=== PATIENT | male | born 1985 | race Caucasian/White ===

== ENCOUNTER 2024-07-01 16:26 | Inpatient (IN) | payer OTHER, SELFPAY ==
[2024-07-01] VITALS (15 sets, daily range): BP systolic 93–155; BP diastolic 71–88; PULSE 71–79; BMI 27.0; BMI 26.4
--- NOTE | 2024-07-01 11:06 | ED.PDOC.TRB ---
ED Provider Triage
-
Patient seen by provider in Triage?: Seen in Triage
Initial rapid assessment performed in triage to facilitate ED workup
This is a 39-year-old male with congenital heart defect and AV block status post pacemaker placement the age of 1, presenting to the emergency department due to heart palpitations and shortness of breath beginning this morning. Denies chest pain at
this time. Current speech and hearing director is Dr. Maldonado. Last pacer hardware or battery exchange was June of last year performed at this hospital. Pacemaker is a Medtronic
GEN: Appears anxious/distressed
HEENT: Oral mucosa moist, no scleral icterus
Cardiac: Regular rate
Lung: Mildly tachypneic
MSK: No gross deformity or injuries
Skin: Good color, no pallor or jaundice, no rashes
Neuro: AO x3, unsteady gait
Psych: Calm, cooperative
Initial EKG shows a paced rhythm with controlled rate
Assessment/plan: Potential cardiac arrhythmia, needs urgent pacemaker interrogation, will order labs and chest x-ray for completeness
[2024-07-01 11:50] LABS: % Basophils 0.2 % (0-2); % Eosinophils 1.9 % (0-6); % Immature Granulocytes 0.4 % (0-0.5); % Lymphocytes 29.7 % (20.5-51.1); % Monocytes 8.8 % (1.7-9.3); Absolute Eosinophils 0.2 10^3/uL (0-0.7); Absolute Lymphocytes 2.5 10^3/uL (1.2-3.4); Absolute Monocytes 0.7 10^3/uL (0.1-0.6); Absolute Neutrophils 4.9 10^3/uL (1.4-6.5); Hematocrit 41.3 % (39.0-52.0); Hemoglobin 14.6 g/dL (13.0-18.0); Mean Corp Hgb Conc. 35.4 g/dL (33.0-37.0); Mean Corpuscular Hgb 31.5 pg (27.0-31.0); Mean Corpuscular Volume 89.2 fL (80.0-94.0); Mean Platelet Volume 10.2 fL (7.4-10.4); Nucleated Red Blood Cells % 0 % (-); Platelet Count 240 10^3/uL (130-400); Red Blood Cell Count 4.63 10^6/uL (4.70-6.10); Red Cell Dist. Width 12.3 % (11.5-14.5); White Blood Cell Count 8.3 10^3/uL (4.8-10.8)
[2024-07-01 12:03] LABS: ALT (SGPT) 32 U/L (0-50); AST (SGOT) 27 U/L (17-59); Albumin 4.7 g/dl (3.5-5.0); Alkaline Phosphatase 76 U/L (38-126); Blood Urea Nitrogen 11 mg/dl (9-20); Calcium 9.9 mg/dl (8.4-10.2); Carbon Dioxide 19 mmol/L (22-30); Chloride 107 mmol/L (98-107); Estimated Creatinine Clearance 88 ml/min; Glucose 113 mg/dl (70-99); Potassium 4.2 mmol/L (3.5-5.1); Sodium 140 mmol/L (135-145); Total Bilirubin 0.9 mg/dl (0.2-1.3); eGFR > 60.00
[2024-07-01 12:15] LABS: Troponin I < 0.012 ng/ml
--- NOTE | 2024-07-01 13:04 | ED.GENMED ---
History of Present Illness
General
Chief Complaint: Cardiac Symptoms
Source: patient
Exam Limitations: none
Time Seen by Provider: 07/01/24 11:44
Nursing documentation reviewed up to this point in time: agreed with
History of Present Illness
History of Present Illness:
pt is a 39 y/o M with h/o complete heart block, s/p Pacer, former substance abuse, chf,
here with papitaitons/racing heart rate and chest tightness/sob since 10 am this morning after having intercourse
he says he felt his heart rate increase but just presumed this was normal
but then it didn't improve and he didn't feel right so he decided to come in
on he way here, he threw up outside of the car
he felt a little improved after vomiting, his heart rate did come down soem but he still doesn't feel right
he has mild chest tightness and sob
no abdominal apin, fever, cough
Past History
Past History
ED Past Medical History: Arrthythmia, Other (VSD) and Other (Chronic back issues)
ED Past Surgical History: Cardiac
Social History
Tobacco: Smoker
Living: with family
Employment: Disabled
Review of Systems
Review of Systems
Allergies reviewed?: Yes
All Other Systems: Not applicable
Phy Exam
Physical Exam
Physical Exam:
GENERAL: Alert , in no apparent distress, pale, mildly uncomfortable but not in distress
EYE: pupils equal and reactive
NECK: Supple
ENT: o/p clr, mmm.
CARDIAC: Regular rate and rhythm ., no edema
LUNGS: Clear breath sounds bilaterally, no acute respiratory distress, no wheezes/rales/rhonchi
ABDOMEN: Soft, without focal tenderness, no r/g, no cvat, normal bowel sounds
NEUROLOGICAL: Alert and oriented, no focal neuro deficits
SKIN: Warm and dry, skin intact.
MUSCULOSKELETAL: No edema, well perfused. neg sayda's sign
PSYCH: Normal and appropriate interaction.
Course
Orders/Labs/Results
Orders:
Orders
07/01/24 10:59
Electrocardiogram (*1) Urgent
Reason for Study: Palpitations
EKG- Treatment ONCE
07/01/24 11:04
CR Chest - 2 Views Urgent
Comment:
Reason For Exam: SOB
07/01/24 11:15
Complete Blood Count/With Diff Urgent
Comprehensive Metabolic Panel Urgent
NT-proBNP Urgent
Comment: PROBNP ADDED ON BY FLOOR 3PM 07-01-24
Troponin I Urgent
07/01/24 14:48
Echo 2D MMode Color/Doppler Routine
Reason for Study: sustained VT, cardiomyopathy
07/01/24 14:57
Add On- LAB Routine
Tests Added?: proBNP
Abnormal Lab Results
07/01/24
11:15
RBC 4.63 L 10^6/uL
(4.70-6.10)
MCH 31.5 H pg
(27.0-31.0)
Absolute Monos (auto) 0.7 H 10^3/uL
(0.1-0.6)
Carbon Dioxide 19 L mmol/L
(22-30)
Glucose 113 H mg/dl
(70-99)
07/01/24 11:15
07/01/24 11:15
Vital Signs
Initial and Last Documented VS:
Initial Vital Signs
Temp Pulse Resp BP Pulse Ox
97.9 F 91 20 129/88 99
07/01/24 11:03 07/01/24 11:03 07/01/24 11:03 07/01/24 11:03 07/01/24 11:03
Last Documented Vital Signs
Temp Pulse Resp BP Pulse Ox
97.9 F 77 25 135/83 97
07/01/24 11:03 07/01/24 14:15 07/01/24 14:15 07/01/24 14:00 07/01/24 14:15
MDM/Problems Addressed
Differential Diagnosis Includes:
afib, v tach, near syncope, palpitations,
MDM/Problems Addressed:
39 y/o M s/p pacer, compete heart block
chf
no anticoagulation
here after feeling elevated HR after intercourse
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
now feels alittle better but still having feeling of fast HR
monitor reading 70s-80s
paced
no edema on exam
lungs clear
medtronic pacer interrogated, and pt apparently had 24 minutes of VTach
d/w dr. otoole
recommends admit to hopsitalist
cork slabs sawyer likely tomorrow
pt c/o nausea
qtc too long for zofran
he told regional marketing manager that he had some streak of blood in thhe vomit but did not share that with me
hg stable
*Critical Care Note
Total Time (30-74mins, 75-104mins- exclusive of procedures): Not Applicable
ED Attending Note
-
Portions of this chart may have been created with voice recognition software.� Occasional wrong word or��sound alike� substitutions may have occurred due to the inherent limitations of voice recognition software.
Discharge Plan
Departure
Patient Disposition: Admit
Date of Disposition: 07/01/24
Time of Disposition: 15:09
Admit to: IVU
Presentation/result/management discussed w/ accepting MD/DO: Hospitalist
Condition: Fair
Covid-19: Not Applicable
Discharge Problem:
Ventricular tachycardia
Prescriptions:
No Action
carvedilol 6.25 MG tablet
6.25 mg PO BID
losartan 25 MG tablet
25 mg PO DAILY
aspirin [Kirk Chewable Aspirin] 81 MG tablet,chewable
81 mg PO DAILY
spironolactone 25 MG tablet
25 mg PO DAILY
lamotrigine [Lamictal] 100 MG tablet
250 mg PO HS
Referrals:
Roz Acosta, DO [Family Provider] -
Interventions
Interventions:
*Risk Screen - Suicide Last Done: 07/01/24 11:03
*General Assessment Last Done: 07/01/24 11:03
*Neglect/Abuse Screening Last Done: 07/01/24 11:03
ED- Fall Risk Assessment Last Done: 07/01/24 11:15
*ED COVID-19 Vaccine History Last Done: 07/01/24 11:11
ED- Pulmonary Assessment Last Done: 07/01/24 11:15
ED- Cardiac Assessment Last Done: 07/01/24 11:15
Discharge Date and Time
Print Language: ARABIC
--- NOTE | 2024-07-01 13:12 | CON.CAR ---
Addendum entered and electronically signed by David Wilson MD 07/01/24 15:07:
I saw and examined the patient.
The GUEST SERVICES MANAGER or PA's note was reviewed and I agree with the note.
Comment: General: Well developed, well nourished in NAD.
Neck: Supple, no JVD, HJR, carotids +2 B/L, no bruits bilaterally.
Heart: Non displaced PMI, RRR, no murmurs, No S3, S4, no rubs.
Lungs: Clear to auscultation bilaterally, no wheeze, rhonchi, rubs bilaterally,
normal expiratory phase.
Abdomen: Normal bowel sounds, soft, non-tender, non-distended.
Extremities: No clubbing, cyanosis or edema bilaterally.
Neuro: Grossly nonfocal, awake, alert and oriented x3.
Javier has a history of VSD repair at age 1 with PA banding, complete heart block status post dual-chamber pacer initially placed in 2006, nonischemic cardiomyopathy with ejection fraction of 35 to 40% 2020, atrial flutter status post ablation
July 2014, CVA, mood disorder, chronic back pain, ongoing tobacco use as well as daily marijuana use. He was having intercourse and developed chest discomfort and palpitations. He has had similar symptoms in the past with A-fib but this was
prolonged. He also had vomiting with bloody material. He came to the ER and was paced. Review of pacemaker revealed a 26-minute episode of ventricular tachycardia
Discussed in detail with patient and girlfriend at bedside. He has V. tach and nonischemic cardiomyopathy. He also had chest discomfort after intercourse. He will be admitted to hospitalist service. GI workup be undergone regarding vomitus with
bloody material. If stable from GI standpoint will consider cardiac catheterization to exclude CAD as the cause of ventricular tachycardia. Will also recheck echocardiogram to reassess ejection fraction. May need to consider upgrading pacemaker
to ICD even if CAD is noted.
Original Note:
Consultation
Consultation Request
Date/Time Consultation Performed: 07/01/24
Requesting Provider: Yesenia Gray PA-C
Performing Provider: Deandra Erickson PA-C for Dr. Wilson
Reason for Consultation: VT
Medical History
-
Chief Complaint: palpitations, CP, SOB
History of Present Illness:
Patient is a 39 yo M with PMH of congenital heart disease status post VSD repair at age 1 with PA banding, complete heart block status post dual-chamber Medtronic pacemaker initially placed 2006, nonischemic cardiomyopathy with EF 35-40% by echo in
2020, paroxysmal atrial flutter status post ablation 07/2014, history of stroke, mood disorder, chronic back pain with prior back surgeries, ongoing tobacco use, daily marijuana use who presents to [facility] due to episode of
palpitations/heart racing, chest discomfort, shortness of breath which started shortly after having intercourse around 10 AM this morning. He reports he has had this feeling before in the setting of atrial fibrillation, however typically subsides
relatively quickly. He states with this episode it did not subside and continued. He and significant other made decision to come to hospital. On their way into the car he became lightheaded, nauseous and vomited up blood by their report.
Patient's sister who is a nurses aide was also present and said his vomit was overtly bloody. After this patient reports he noted his heart rate improved and he felt somewhat improved. Upon device interrogation in the ER, concern for VT as etiology
of symptoms. Cardiology consulted for evaluation. Troponin negative x 1.
PMH:
congenital heart disease status post VSD repair at age 1 with PA banding
complete heart block status post dual-chamber Medtronic pacemaker initially placed 2006
nonischemic cardiomyopathy with EF 35-40% by echo in 2020
paroxysmal atrial flutter status post ablation 07/2014
history of stroke
mood disorder
chronic back pain with prior back surgeries
ongoing tobacco use
daily marijuana use
Past Medical History
Past Medical History: Other (in HPI)
Social History
Tobacco: Smoker (at least 2 packs a day)
Alcohol: Occasional (rare)
Drug: Marijuana ()
Personal: Partner
Living: With Family
Employment: Disabled
Allergies / Home Medications
Allergy/AdvReac Type Severity Reaction Status Date / Time
No Known Allergies Allergy Verified 07/01/24 11:07
�Medication �Instructions �Recorded �Confirmed �Type
carvedilol 6.25 mg tablet 6.25 mg PO BID 07/17/14 06/13/23 History
losartan 25 mg tablet 25 mg PO DAILY 07/17/14 06/13/23 History
aspirin 81 mg chewable tablet 81 mg PO DAILY 09/29/15 06/13/23 History
(Kirk Chewable Low Dose Aspirin)
lamotrigine 100 mg tablet 250 mg PO HS 07/16/18 06/13/23 History
(Lamictal)
spironolactone 25 mg tablet 25 mg PO DAILY 07/16/18 06/13/23 History
Review of Systems
-
History Source: Patient and Family
All other systems: Negative unless noted
Physical Exam
Vital Signs
Temp Pulse Resp BP Pulse Ox
97.9 F 78 11 141/82 95
07/01/24 11:03 07/01/24 12:23 07/01/24 12:23 07/01/24 12:23 07/01/24 12:00
Lab Results
07/01/24 11:15
07/01/24 11:15
Troponin I < 0.012 ng/ml 07/01/24 11:15
Physical Exam
General: No Apparent Distress and Comfortable
HEENT: Normocephalic, Anicteric and Moist Mucous Membranes
Impression / Plan
-
Primary Mine Safety Manager: Dr. Maldonado of [facility]
Assessment:
Presentation with palpitations, lightheadedness
CP
SOB
Hematemesis
Sustained, spontaneously aborted VT by device interrogation 07/01/24
Negative trop x1
Congenital heart disease status post VSD repair at age 1 with PA banding
Complete heart block status post dual-chamber Medtronic pacemaker initially placed 2006
Nonischemic cardiomyopathy with EF 35-40% by echo in 2020
Paroxysmal atrial flutter status post ablation 07/2014
history of stroke
mood disorder
chronic back pain with prior back surgeries
ongoing tobacco use
daily marijuana use
Echocardiogram 12/10/2020: EF 35 to 40%, mild LVH, mildly enlarged RV mild MAC, moderate TR, RVSP 23 mmHg, intra-atrial septum distended and bowing, multiple LV regional wall motion abnormalities exist (LAD distribution, RCA distribution, entire
apex, basal and mid anterolateral wall, mid inferolateral segment are hypokinetic)
Pacemaker interrogation 11/22/2023 72.8% atrial pacing, 99.6% V pacing, no A-fib noted, no high V rate events noted, battery 10.5 years
Plan:
-Patient presents with episode of palpitation/lightheadedness with associated chest pain, shortness of breath this morning. By device interrogation completed in ER, rhythm was consistent with VT at time of this event (discussed with EP and device
solar sales representative). Appears he broke with episode of vomiting, which patient and family report was bloody.
-records obtained and reviewed from [facility] including echo 12/10/2020, device interrogation 11/22/23, OV 05/29/24
-GI evaluation for hematemesis. Hemoglobin 14.6, follow. Continue baby aspirin as able
-Once cleared from GI standpoint, would plan for cardiac catheterization to evaluate for underlying coronary disease
-Echocardiogram today
-trend trops, initial negative
-AV paced by ER EKG
-continue OP coreg, losartan, spironolactone
-check proBNP. CXR with borderline CHF. not on diuretic as OP.
-could consider for SGLT2 inhibitor
-will likely need upgrade of device to ICD prior to DC. possible VT scar based from prior VSD repair
-patient reports will need nicotine patch. smoking (tobacco and marijuana) cessation
-also reports back and neck pain (chronic). pain mgmt per primary service
-d/w patient and family at bedside
Data Reviewed
-
EKG: Tracing Personally Visualized and interpreted
Radiology: Report Reviewed by me
Medical Tests (Nuc Med, Echo etc): Report Reviewed by me
Labs: Labs Reviewed by me
Old Records: Reviewed
--- NOTE | 2024-07-01 15:31 | HPS.HSE ---
Family Physician
-
Family Physician: Roz Acosta
Chief Complaint
-
graham discomfort and palpitation sexual intercourse
History of Present Illness
39M HX CHDz with VSD repair at age 1yr old with PA banding, 3 degre HB, s/p dual-chamber pacer initially placed in 2006, NICM , LVEF 35 to 40% 2020, A flutter status post ablation July 2014, CVA, , ongoing tobacco use as well as daily
marijuana use acute onset of chest discomfort and palpitations while having intercourse. Associated with
vomiting with bloody material.
- also chest discomfort after intercourse.
- ER reviewed pacemaker revealed a 26-minute episode of ventricular tachycardia
Medical History
Past Medical History
Past Medical History: Reports Arrhythmia (Prx AF. Heart block , PPM implant ) and CHF
Additional Past Medical History:
congenital heart disease status post VSD repair at age 1 with PA banding
complete heart block status post dual-chamber Medtronic pacemaker initially placed 2006
nonischemic cardiomyopathy with EF 35-40% by echo in 2020
paroxysmal atrial flutter status post ablation 07/2014
history of stroke
mood disorder
chronic back pain with prior back surgeries
ongoing tobacco use
daily marijuana use
Past Surgical History: Reports Cardiac (congenital heart disease status post VSD repair at age 1 with PA banding)
Social History
Tobacco: Smoker
Living: With Family
Family History
Family History: Not pertinent
Allergies / Home Medications
Allergies reflects when Allergies were last updated in [facility].
Home Medications with original date entered in [facility]
Allergy/Medication List:
Allergies
Allergy/AdvReac Type Severity Reaction Status Date / Time
No Known Allergies Allergy Verified 07/01/24 11:07
Home Medications
carvedilol 6.25 mg tablet 6.25 mg PO BID 07/17/14
losartan 25 mg tablet 25 mg PO DAILY 07/17/14
lamotrigine 100 mg tablet (Lamictal) 250 mg PO HS 07/16/18
spironolactone 25 mg tablet 25 mg PO DAILY 07/16/18
atorvastatin 10 mg tablet (Lipitor) 10 mg PO HS 07/01/24
Review of Systems
-
Constitutional: Reports No Symptoms
EENT: Reports No Symptoms
Respiratory: Reports No Symptoms
Cardiac: Reports See HPI
Abdomen/GI: Reports No Symptoms
: Reports No Symptoms
Musculoskeletal: Reports No Symptoms
Skin: Reports No Symptoms
Neurological: Reports No Symptoms
Endocrine: Reports No Symptoms
Hematologic/Lymphatic: Reports No Symptoms
Psych: Reports No Symptoms
Physical Exam
Vital Signs
Vital Signs
Temp Pulse Resp BP Pulse Ox
97.9 F 77 25 135/83 97
07/01/24 11:03 07/01/24 14:15 07/01/24 14:15 07/01/24 14:00 07/01/24 14:15
Physical Exam
General: Well Developed, Well Nourished and No Apparent Distress
HEENT: NormoCephalic, Moist mucous membranes and Atraumatic
Respiratory: Clear
Cardiac: S1/S2 and Regular Rhythm; No Murmur or Rub
GI: Soft, Non Tender, Non Distended and Normal Bowel Sounds; No Organomegaly
Rectal: Deferred by Provider
Musculoskeletal: No Clubbing, No Cyanosis and No Edema
Skin: No Rash
Neuro: Nonfocal/grossly intact
Laboratory Results
-
07/01/24 11:15
07/01/24 11:15
Laboratory Results
Total Bilirubin 0.9 mg/dl (0.2-1.3) 07/01/24 11:15
AST 27 U/L (17-59) 07/01/24 11:15
ALT 32 U/L (0-50) 07/01/24 11:15
Alkaline Phosphatase 76 U/L (38-126) 07/01/24 11:15
Troponin I < 0.012 ng/ml 07/01/24 11:15
Data Reviewed
-
Medical Tests (Nuc Med, Echo, EKG etc): Report Reviewed by me
Lab Data: Labs Reviewed by me
Old Records: Reviewed
Impression/Plan
-
Vital Signs
Temp Pulse Resp BP Pulse Ox
97.9 F 77 25 135/83 97
07/01/24 11:03 07/01/24 14:15 07/01/24 14:15 07/01/24 14:00 07/01/24 14:15
Data
Hgb 14.6 - was 13,.44
Unremarkable CMP
NEG TPNI
TTE 12/10/2020:
EF 35 to 40%, mild LVH, mildly enlarged RV mild MAC, moderate TR, RVSP 23 mmHg, intra-atrial septum distended and bowing, multiple LV regional wall motion abnormalities exist (LAD distribution, RCA distribution, entire apex, basal and mid
anterolateral wall, mid inferolateral segment are hypokinetic)
Pacemaker interrogation 11/22/2023 72.8% atrial pacing, 99.6% V pacing, no A-fib noted, no high V rate events noted, battery 10.5 years
ASSESSMENT & PLAN
Chest discomfort during and after sexual intercourse
26-minute episode of ventricular tachycardia per PPM interogation
HX NICM with EF 35-40% by echo in 2020
- seen by DC card at ER
- ECHO in AM
- For cardia cath
- will NPO after MN
- DCA card consult
Vomited blood per patient
Hgb stable at 14s
- NPO after MN
- trend hgb
- IV PPI BID
- T & S
- GI consult when card clear
HX HX NICM with EF 35-40% by echo in 2020
Essential HTN
HLD
- cont Lipitor, carvedilol and Losartan and Aldactone
DVT Px: SCD
Code: Full
IMU
[2024-07-01 15:39] LABS: NT-proBNP 177 pg/ml
--- NOTE | 2024-07-01 16:32 | CARDSERVLU ---
Echocardiogram with [facility] completed after protocol screening completed. Allergies verified.
Patent IV site: ___lac__
IV site flushed with 0.9% NaCl pre and post administration.
Diluted bolus method utilized to enhance visualization of ventricular smith.
Total volume given: _5___ mL
Patient tolerated all procedures well without complications.
[2024-07-01 17:54] LABS: Hematocrit 41.1 % (39.0-52.0); Hemoglobin 14.9 g/dL (13.0-18.0)
--- NOTE | 2024-07-01 17:55 | PTCARENOTE ---
Received written report on patient from JANES Shultz. Pt arrived to unit on stretcher. aaox3, AV paced on monitor. VSS. Pt oriented to unit and admission assessment completed. Pt resting in bed with call wade in reach.
[2024-07-01] MEDS: NICODERM TRANSDERMAL 14 MG TRANSDERM (18:17)
--- NOTE | 2024-07-01 19:30 | PTCARENOTE ---
on assessment pt c/o CP and denies SOB, REGISTERED VETERINARY TECHNICIAN paged and made aware, labs ordered. AAOx3, AV paced-Vpaced on the monitor, RA, NPO for cath tomorrow, denies N/V, girlfriend at bedside, call wade in reach.
[2024-07-01] MEDS: LAMICTAL 250 MG PO (20:12)
[2024-07-01] MEDS: COREG 6.25 MG PO (20:13)
[2024-07-01] MEDS: LIPITOR 10 MG PO (20:13)
[2024-07-01] MEDS: NSS (PRESERVATIVE FREE) 10 ML IV (20:14)
[2024-07-01] MEDS: PROTONIX IV 40 MG IV (20:14)
[2024-07-01 21:25] LABS: Blood Urea Nitrogen 11 mg/dl (9-20); Calcium 10.1 mg/dl (8.4-10.2); Carbon Dioxide 18 mmol/L (22-30); Chloride 107 mmol/L (98-107); Estimated Creatinine Clearance 99 ml/min; Glucose 89 mg/dl (70-99); Potassium 4.4 mmol/L (3.5-5.1); Sodium 141 mmol/L (135-145); eGFR > 60.00
[2024-07-01 21:27] LABS: Troponin I 0.036 ng/ml
--- NOTE | 2024-07-01 23:53 | PTCARENOTE ---
when the pt complained of pain at 1930 it lasted for only 30 second and resolved on its own, pt recently moved from chair to bed during this time. on re assessment pt denies any more episodes of chest pain, BRUSH OPERATOR at bedside to speak to pt and
girlfriend. BRUSH OPERATOR wants pt to remain bedrest for tonight due to previous chest pain while OOB, pt very agitated stating he wants to get OOB because his back is bothering him. pt was repositioned in bed with pillow support and pt states he is more
comfortable at this time. call wade in reach.
[2024-07-02] VITALS (25 sets, daily range): BP systolic 96–150; BP diastolic 53–114; BMI 26.5
[2024-07-02 04:43] LABS: Hematocrit 44.8 % (39.0-52.0); Hemoglobin 15.9 g/dL (13.0-18.0); Mean Corp Hgb Conc. 35.5 g/dL (33.0-37.0); Mean Corpuscular Hgb 32.6 pg (27.0-31.0); Mean Platelet Volume 10.2 fL (7.4-10.4); Platelet Count 240 10^3/uL (130-400); Red Blood Cell Count 4.87 10^6/uL (4.70-6.10); Red Cell Dist. Width 12.3 % (11.5-14.5); White Blood Cell Count 12.4 10^3/uL (4.8-10.8)
[2024-07-02 05:07] LABS: Troponin I 0.019 ng/ml
[2024-07-02 05:21] LABS: ALT (SGPT) 31 U/L (0-50); AST (SGOT) 26 U/L (17-59); Albumin 5.1 g/dl (3.5-5.0); Alkaline Phosphatase 85 U/L (38-126); Blood Urea Nitrogen 13 mg/dl (9-20); Calcium 10.1 mg/dl (8.4-10.2); Carbon Dioxide 16 mmol/L (22-30); Chloride 109 mmol/L (98-107); Estimated Creatinine Clearance 99 ml/min; Glucose 87 mg/dl (70-99); Potassium 4.4 mmol/L (3.5-5.1); Sodium 143 mmol/L (135-145); Total Bilirubin 1.5 mg/dl (0.2-1.3); Total Protein 7.7 g/dl (6.3-8.2); eGFR > 60.00
--- NOTE | 2024-07-02 05:36 | PTCARENOTE ---
patient refusing floor staff to draw blood from now on, only wants IV team to stick him per girlfriend at bedside. pt denies any chest pain overnight.
--- NOTE | 2024-07-02 06:18 | DOWNTIME ---
There was a [employer] Client Boring Machine Operator Double End Downtime on 07/02/2024 from 0100 to 07/02/2024 at 0300. Downtime documentation of patient's care, including medication administrations, has been reconciled in the electronic record per guidelines. Refer to the
patient's paper chart under the miscellaneous tab to see printed paper medication records and downtime forms.
--- NOTE | 2024-07-02 08:04 | W.PN.CARDCBS ---
Addendum entered and electronically signed by Jim Hardin MD 07/02/24 15:44:
I saw and examined the patient.
The Psychiatric Orderly's note was reviewed and I agree with the note.
Comment:
GEN: No distress, awake, Ox3
HEENT: supple, anicteric, mmm
LUNGS: CTA, no wheezes/rales
CV: Reg, S1/S2, 1/6 syst LSB, no gallop
ABD: soft, BS+, NT/ND
EXT: No edema
NEURO: Gross non-focal
SKIN: No rash
Plan:
Cardiac cath with nonobstructive CAD. Plan will be to upgrade pacemaker to ICD today.
Case discussed with Dr. Maldonado.
Continue Coreg, Cozaar, and Aldactone.
LVEF approximately 45% with RV hypokinesis.
Original Note:
Today's Communication / Plan
-
for cath today
GI evaluation
pending results of cath, tentatively for device upgrade in AM if EP schedule allows
Impression / Plan
-
Primary Center Lead Consultant: Dr. Maldonado of [facility]
Assessment:
Presentation with palpitations, lightheadedness
CP
SOB
Hematemesis
Sustained, spontaneously aborted VT by device interrogation 07/01/24
Negative trop x1
Congenital heart disease status post VSD repair at age 1 with PA banding
Complete heart block status post dual-chamber Medtronic pacemaker initially placed 2006
Nonischemic cardiomyopathy with EF 35-40% by echo in 2020
Paroxysmal atrial flutter status post ablation 07/2014
history of stroke
mood disorder
chronic back pain with prior back surgeries
ongoing tobacco use
daily marijuana use
Echocardiogram 12/10/2020: EF 35 to 40%, mild LVH, mildly enlarged RV mild MAC, moderate TR, RVSP 23 mmHg, intra-atrial septum distended and bowing, multiple LV regional wall motion abnormalities exist (LAD distribution, RCA distribution, entire
apex, basal and mid anterolateral wall, mid inferolateral segment are hypokinetic)
Pacemaker interrogation 11/22/2023 72.8% atrial pacing, 99.6% V pacing, no A-fib noted, no high V rate events noted, battery 10.5 years
ECHO 07/01/24: EF 45 to 50%, abnormal septal motion consistent with RV paced rhythm or pressure overload, global hypokinesis, mild TR, PAP 26 mmHg, enlarged RV size akinetic RV apex, trace AR. Of note patient was found to have bicuspid aortic valve
at time of MERCEDEZ in 2013
Plan:
-Patient without recurrence of VT overnight on review of telemetry. in av paced rhythm
-Reports he had some chest discomfort yesterday evening, however none at present
-Initial Trop 0.036 and trending down
-K/mag stable
-Echocardiogram with improvement in EF at 45 to 50% compared to prior in 2020 as above
-Patient seen and discussed with primary set o type operator this morning. No recurrence of hematemesis. Hemoglobin remained stable. Plan for cardiac catheterization today with Dr. Maldonado
-would have GI evaluate patient given episode of hematemesis
-pending results of cath, likely needs device upgrade. possible VT scar based from prior VSD repair. tentatively in AM if EP schedule allows
-continue OP coreg, losartan, spironolactone
-could consider for SGLT2 inhibitor
-smoking (tobacco and marijuana) cessation
-with chronic neck and back pain. pain mgmt per primary service
-above d/w patient and significant other, January at bedside
-d/w nursing
PREADMIT DATA:
-Patient presents with episode of palpitation/lightheadedness with associated chest pain, shortness of breath this morning. By device interrogation completed in ER, rhythm was consistent with ~26 minutes of VT at time of this event (discussed with
EP and device representative phlebotomy services). Appears he broke with episode of vomiting, which patient and family report was bloody.
Progress Note - Center Lead Consultant
Subjective
Date of Service: July 02, 2024
Reports had some recurrent chest tightness last evening, however none since. No further vomiting
Objective
Labs:
07/02/24 04:32
07/02/24 04:32
Labs
Hgb 15.9 g/dL (13.0-18.0) 07/02/24 04:32
Hct 44.8 % (39.0-52.0) 07/02/24 04:32
Plt Count 240 10^3/uL (130-400) 07/02/24 04:32
Sodium 143 mmol/L (135-145) 07/02/24 04:32
Potassium 4.4 mmol/L (3.5-5.1) 07/02/24 04:32
BUN 13 mg/dl (9-20) 07/02/24 04:32
Creatinine 0.8 mg/dL (0.7-1.3) 07/02/24 04:32
Glucose 87 mg/dl (70-99) 07/02/24 04:32
Troponins
07/01/24 07/01/24 07/02/24
11:15 20:47 04:32
Troponin I < 0.012 0.036 H* 0.019 D
07/02/24
10:00
Troponin I Cancelled
Vital Signs and I&O:
Vital Signs
Temp Pulse Resp BP Pulse Ox
97.7 F 60 18 130/71 94
07/02/24 03:03 07/02/24 05:00 07/02/24 05:00 07/02/24 04:00 07/02/24 05:00
Vital Signs
Temp Pulse Resp BP Pulse Ox
97.7 F 60 18 130/71 94
07/02/24 03:03 07/02/24 05:00 07/02/24 05:00 07/02/24 04:00 07/02/24 05:00
Intake & Output
06/30/24 07/01/24 07/02/24 07/03/24
07:59 07:59 07:59 07:59
Output Total 250 / 250
Balance -250 / -250
Physical Exam
Physical Exam
GEN: No distress, awake, alert, oriented x3
HEENT: supple, anicteric, mmm, eomi
LUNGS: no audible wheezes
CV: av paced on tele
EXT: No cyanosis, clubbing, edema
NEURO: Gross non-focal
SKIN: Warm, pink, dry. No rash
--- NOTE | 2024-07-02 09:35 | PTCARENOTE ---
Patient transported to Cardiac landscape and yardwork laborer, called IVU team to give report for transfer. RN stated that she received report from landscape and yardwork laborer team. Family notified of plan of care.
--- NOTE | 2024-07-02 09:50 | ITS.CL.CATH ---
Psych Social Worker - Catheterization
Cardiac Catheterization
Procedure Report:
LEFT HEART CATHETERIZATION
Date of Procedure: July 02, 2024
Procedures performed:
1: Coronary angiography
2: Left ventriculography
Primary Care Physician: Dr. Roz Acosta
Primary Energy Conservation Engineer: Myself
INDICATION: The patient is a 39-year-old man with a complex past medical history including multiple surgeries for congenital heart disease who presents with sustained ventricular tachycardia. He is referred for coronary angiography.
ACCESS: The patient was prepped and draped in usual sterile fashion. A 5 Slovak sheath was placed in the right common femoral artery using the Seldinger over the wire technique. The radial artery appears to be occluded on ultrasound and was not
used. My suspicion is he had multiple arterial lines in the past in that wrist.
HEMODYNAMIC FINDINGS (mmHg):
LV(s/d,EDP): 121/12, 15
Ao(s/d,m): 121/71, 93
ANGIOGRAPHIC FINDINGS:
Single-plane Left Ventriculography in AGUILAR Projection: Preserved LV systolic function with low normal visually estimated ejection fraction of 50 to 55%. No regional wall motion abnormalities. No significant mitral regurgitation.
Coronary Angiography:
Dominance: Right
Left Main: Normal.
Left Anterior Descending: The left anterior descending artery is a medium caliber vessel that gives rise to 2 medium caliber diagonal branches. These vessels are patent with normal flow.
Ramus Intermedius there is a large caliber ramus intermedius branch that bifurcates into 2 medium caliber vessels. These are widely patent with normal flow.
Left Circumflex: The left circumflex is a medium caliber nondominant system that gives rise two very small proximal OM's and a larger distal OM that branches with limited vascular territory to the lateral wall. These vessels have normal flow with
no focal disease.
Right Coronary: The right coronary artery is a large-caliber dominant vessel that gives rise to a large caliber posterior descending artery and posterior left ventricular branch system. These vessels are normal with normal flow.
Fluoroscopy Time (min): 4.3
Radiation Dose (mGy): 333
DAP (Gy.cm2): 29
Closure device: None. A TR band was applied for hemostasis at the right wrist.
Complications: None.
ASSESSMENT:
1: Normal coronary arteries.
2: Preserved LV systolic function with no significant mitral regurgitation.
CONCLUSIONS and RECOMMENDATIONS:
1: EP evaluation for sustained VT. Suspect he will need a ICD upgrade.
Giancarlo Maldonado M.D.
Copy to: Dr. Roz Acosta
[2024-07-02] MEDS: NICODERM TRANSDERMAL 14 MG TRANSDERM (09:54)
[2024-07-02] MEDS: TYLENOL 650 MG PO (09:54)
[2024-07-02] MEDS: COREG 6.25 MG PO ×2 (09:55→21:27)
[2024-07-02] MEDS: COZAAR 25 MG PO (09:55)
[2024-07-02] MEDS: PROTONIX IV 40 MG IV ×2 (09:55→19:41)
[2024-07-02] MEDS: ALDACTONE 25 MG PO (09:55)
[2024-07-02] MEDS: NSS (PRESERVATIVE FREE) 10 ML IV ×2 (09:55→19:40)
[2024-07-02] MEDS: ROXICODONE 5 MG PO (11:30)
--- NOTE | 2024-07-02 11:45 | W.ICD.CONTRA ---
Post ICD/TEST BAKER-D
-
History of NV?: No
LV Function
Left ventricular function study result?: Ejection Fraction >35% - <40%
ACEI/ARB/ARNI
Patient already on ACEI/ARB/ARNI: Yes
Beta-Grazyna
Patient already on Beta Grazyna: Yes
[2024-07-02] MEDS: ZOFRAN 4 MG IV (12:18)
--- NOTE | 2024-07-02 13:26 | CM ---
CM following for DC planning needs.
Met w/ patient at bedside to complete initial assessment.
Pt. c/o a fair amount of pain so conversation was limited.
Prior to admission, pt. was residing w/ sig. other in a single level apartment.
Functionally, patient is indep. at baseline w/ ADLs, mobility without use of any assisted device.
Anticipated DC plan is for home, no needs.
CM to follow.
--- NOTE | 2024-07-02 13:30 | W.PN.UPDATE ---
Update Note
Progress Note Update
EP update note:
Briefly, patient is a pleasant 39-year-old male with a past medical history significant for congenital heart disease status post VSD repair and PA banding, complete heart block status post dual-chamber Medtronic pacemaker 2006, nonischemic
cardiomyopathy LVEF 35 to 40% 2020 improved to 45-50% with noted wall motion abnormalities, paroxysmal atrial flutter status post ablation 2013, history of CVA, mood disorder, chronic pain, tobacco use, THC use who experienced sustained monomorphic
ventricular tachycardia by device interrogation for roughly 25 minutes. I met with patient and his family (spouse, Yvonne, [id number], and [id number]) at bedside. Patient requested that I do not speak with/contact his mother and do not
provide her with medical information. Patient with recent sustained VT by device interrogation and underwent left heart catheterization which demonstrated no obstructive coronary artery disease. Due to sustained ventricular tachycardia, patient
meets criteria for secondary prevention ICD. Patient currently has Medtronic dual-chamber pacemaker and will need a upgrade from dual-chamber pacemaker to dual-chamber ICD given history of complete heart block. With regard to ICD, we discussed ICD
indications for primary prevention and secondary prevention patients including 5 year sudden risk. We also discussed implant procedure in detail including an approximate 1:1000 risk of [place]/stroke/ and a 1% risk of
pneumothorax/tamponade/infection/bleeding. We discussed the less than 1% risk of wires bending, breaking, or tearing through the lifetime of the device requiring surgery or procedure to fix. We discussed the less than 1% risk of device/lead
advisory or recall and requirement for monitoring for surveillance. We also discussed post procedure implant restrictions including positions to avoid with implant arm for first six weeks after implant as well as driving restrictions. We discussed
post implant possibility of inappropriate shocks from device and programming strategies to minimize this risk. In our discussion, patient was alert and oriented to person, place, time and of sound mind and understanding. In our discussion, patient
verbalized understanding of our discussion, asked appropriate and pointed questions regarding procedure, benefits, risks, and again verbalized understanding of procedure in totality. Additionally, spouse and family provided input that patient was
at baseline mental status and comprehension. Patient and family verbalized understanding for procedure of device upgrade from pacemaker to ICD. We will plan for venogram to ensure patency of blood vessel and if occluded, more thoughtful discussion
regarding neck steps to be had device upgrade will not be performed. If blood vessel is patent, will plan for device upgraded as discussed. Patient of sound mind and understanding and appropriately verbalized understanding and agreed with this
plan. Consent form signed. Patient remains NPO.
--- NOTE | 2024-07-02 13:56 | PTCARENOTE ---
Pt received from golf course laborer. Bedrest instructions reviewed. AAOx3, tearful and anxious. Stating 8/10 lower back pain related to bedrest. States that pain is chronic, but at home would just walk around. PRN Tylenol administered without positive effect.
Dr. Acosta notified. New order for Roxicodone 5mg PO Q4H acknowledged and administered. Initially refused lab draw for type & screen. Emotional support provided and blood work sent to lab. (R) femoral groin C/D/I. Activity restriction lifted and
patient assisted OOB to chair. Pt now with plan for ICD placement. Report given to golf course laborer RN. New IV site placed in (R) FA.
--- NOTE | 2024-07-02 15:25 | W.PN.HOSP.TC ---
Today's Communication/Plan
-
see note
Assessment / Plan
Assessment / Plan
TTE 07/01
Normal left ventricular size. Mild concentric left ventricular hypertrophy. Mildly reduced left ventricular systolic function. Abnormal (paradoxical)
septal motion consistent with right ventricular paced rhythm or pressure overload. Global hypokinesis. LV ejection fraction is 45-50% by Williamson's
method of discs. Aortic valve opens normally. Calcified aortic valve. No aortic stenosis. Trace aortic regurgitation is seen. Tricuspid valve opens normally.
Mild tricuspid regurgitation. Estimated pulmonary artery pressure of 26 mmHg assuming a right atrial pressure of 3 mmHg.
Enlarged right ventricular size. Reduced right ventricular systolic function. Akinetic right ventricular apex. Pacer wire seen in right ventricle.
Aortic valve opens normally. Calcified aortic valve. No aortic stenosis. Trace aortic regurgitation is seen.
Since MERCEDEZ July 2014, there is no significant change. Of note patient was found to have a bicuspid aortic valve at the time of MERCEDEZ in 2013.

1. Chest pain
Episode of sustained VT
-Exertional in nature while patient having intercourse
-Trop max of 0.036, has normalized now
-EKG not helpful as have AV paced rhythm
-Echocardiogram report as above with EF in mid range of 45 to 50%. Some abnormal paradoxical septal movement
-[facility] showed normal coronaries
-Patient location showed patient had a sustained VT episode lasting approximately 25 minutes plus
-EP cardiology will be involved for evaluation for possible need of ICD placement
2. Hematemesis
Nausea/vomiting - resolved
-Reported episode of hematemesis at home, suspecting Dayanara-Avila tear
-No reported alcohol use/peptic ulcer disease
-GI consulted for evaluation
-stable hbg, maintain on IV protonix 40mg bid
2. H/o of VSD repair
-Patient have some paradoxical septal motion as detailed above
-Increased risk of cardiac arrhythmia/ventricular tachycardia due to scar tissue
3. History of complete heart block
History of paroxysmal atrial flutter status post ablation in 2013
Status post dual-chamber pacemaker placement 2006
-Currently paced rhythm
-On Coreg with other cardiac problems, continue
4. Nonischemic cardiomyopathy
Heart failure with midrange EF
-Patient had history of heart failure with EF 35 to 40% now improved to 45-50%
5. Tobacco use
-nicotine patch and nicorette gum PRN for craving
-smoking cessation advised
6. Marijuana use
-Check UDS
History of CVA
Mood disorder
Full code
Totat time spent : 55 mins
Anticipated Discharge: 24 - 48 hours
Subjective/Interval History
-
Date of Service: July 02, 2024
seen post heart cath
Denies of having any discomfort at groin access site
No chest discomfort/shortness of breath/nausea
Objective Data
-
Labs:
Laboratory Results
07/02/24
04:32
WBC 12.4 H
Hgb 15.9
Hct 44.8
Plt Count 240
Sodium 143
Potassium 4.4
Chloride 109 H
Carbon Dioxide 16 L
BUN 13
Creatinine 0.8
Glucose 87
Calcium 10.1
Total Bilirubin 1.5 H
AST 26
ALT 31
Alkaline Phosphatase 85
Vital Signs:
Vital Signs
Temp Pulse Resp BP Pulse Ox
98.3 F 76 20 128/72 97
07/02/24 12:01 07/02/24 13:45 07/02/24 12:01 07/02/24 13:00 07/02/24 13:23
I&O
07/01/24 07/02/24 07/03/24
06:59 06:59 06:59
Output Total 250 / 250
Balance -250 / -250
Review of Systems
-
Respiratory: Reports No Symptoms
Cardiac: Reports No Symptoms
Abdomen/GI: Reports No Symptoms
Physical Exam
-
General: No Apparent Distress and Comfortable
HEENT: Negative Oxygen
Respiratory: Clear to Auscultation
Cardiac: Regular Rhythm and S1/S2; Negative Murmur or Rub
GI: Soft, Nontender, Nondistended and Normal Bowel Sounds
Musculoskeletal: No Edema
Neuro: Awake, Alert, Oriented, No Motor Deficits and Nonfocal/Grossly Intact
Psych: Calm
--- NOTE | 2024-07-02 17:22 | ITS.CL.ICD ---
Surveying Crew Rodman - ICD
Implantable Cardioverter Defibrillator
Procedure Report:
Primary Welfare Centre Manager: Giancarlo Maldonado MD
Procedure Date: 07/02/2024
Name of procedure:
1. Device Revision: Dual Chamber Pacemaker to Dual Chamber ICD
2. Placement of new RV tachycardia lead / coil
3. Subclavian venography
4. ICD Pocket Revision
5. Cap / abandon chronic RV pacing lead
History:
1. Patient is a pleasant 39-year-old male with past medical history significant for congenital heart disease status post VSD repair at age 1 with PA banding, complete heart block status post dual-chamber Medtronic pacemaker 2006, nonischemic
cardiomyopathy with EF 35 to 40% 2020 improved to 45 to 50% 2023, paroxysmal atrial flutter status post ablation 2013, stroke, chronic back pain, tobacco use, THC use who had sustained monomorphic ventricular tachycardia noted on device
interrogation. Patient without syncope. Patient to undergo upgrade of DC PPM to DC ICD with capping RV chronic pacing lead for secondary prevention of sudden cardiac . Patient is NYHA I-II HF, in complete heart block, with sustained VT noted
on device interrogation.
Methods:
After informed consent was obtained, the patient was brought to the EP laboratory in a postabsorptive, non-sedated state. Peripheral IV access was established. Prophylactic antibiotics were administered prior to incision. Continues ECG, blood
pressure, and pulse oximetry were initiated. Cardioversion patch electrodes were placed on the patient's chest and back. A grounding patch was applied to the skin. Sedation was administered by anesthesia services.
In order to define the extra-thoracic portion of the subclavian vein and exclude significant venous obstruction or anomalous anatomy, subclavian venography was performed prior to the procedure. Using the patient's right peripheral IV, contrast was
injected and images were recorded. The right subclavian vein and SVC were found to be widely patent.
The right chest was prepared and draped in a sterile fashion. A time out was called. Local anesthesia was injected in the subcutaneous tissue in the infraclavicular area. An incision was made into the chronic scar. With cautious attention to the
leads, the subcutaneous tissue was dissected the level of the device capsule. The capsule was opened, the device was explanted and leads remained connected due to CHB. The leads were inspected and found to be free of visible defect. The chronic
RA/RV leads were tested in device and found to have adequate pacing and sensing parameters, consistent with pre-procedure measurements.
Under fluoroscopic guidance and with the assistance of the images from the venogram, a venipunctures was made using micropuncture and modified Seldinger technique. This was performed in the extrathoracic portion of the subclavian vein. Guidewires
was passed. Peel-away sheath was placed and used to advance the lead into the circulation.
Using fluoroscopic guidance, the lead was positioned. The RV lead/coil was advanced to the RV outflow tract. Ventricular ectopy was recorded. Images were taken in AGUILAR and HERMAN views to ensure appropriate lead placement. The lead tip was
subsequently positioned in the RV apex. Adequate sensing and pacing parameters were found, and no diaphragmatic stimulation was seen with high-output pacing.
The sheath was split and the lead were secured to the fascia with Ethibond ties. The pocket was revised to accommodate the size of the new device. The new RV lead/coil was connected to the new generator due to CHB. The chronic leads were removed
from chronic generator and the chronic generator was explanted. The chronic RA lead was connected to the new generator. The chronic RV lead was identified, capped, and placed inside the pocket. The pocket was flushed with antibiotic solution and
hemostasis was assured. The generator and leads were placed inside the pocket. The generator was sutured in place. An antibiotic envelope was used. Floseal was applied. The wound was closed with 3 running layers of absorbable suture and
steri-strips were applied to the skin. Defibrillator function testing was not performed.
Following the procedure, the patient was taken to the recovery area in stable condition. A chest x-ray was ordered as standard procedure.
Lead parameters and device programming:
- RA Lead, NanoPowers, model: 4058, (#[id number]): Sensing 0.6 mV, Pacing threshold 1.25 V at 0.4 ms, Imp 380 Ohm
- RV Lead, Medtronic, model: 6935, (#[id number]): Sensing Dependent, Pacing threshold 0.5 V at 0.4 ms Imp 418 Ohm, shock Imp 63 Ohm
- Device: Medtronic, model: EUXV3G7, DC-ICD (#[id number]), programmed DDDR 60-130, mode switch on
- Zones: VT 176-188, iATP; FVT 176-214, iATP; VF >188 ATP/Shock
- Explanted Device: Medtronic model: W1DR01, #[id number]
- Capped / abandoned RV lead: Medtronic, model: 4058, #[id number]
Conclusions:
1. Successful device revision: Dual chamber pacemaker to dual chamber ICD
2. Subclavian venography
3. Addition of RV tachycardia lead/coil
4. Cap / abandon chronic RV pacing lead
5. Pocket revision
Recommendations:
- Return to patient room
- Chest xray, care-link express
- IV antibiotics while the patient is admitted
- Routine post-procedure care
- Incision check as scheduled
Montez Diez DO
Clinical Cardiac Mechanical Engineering Advisor
cc: Giancarlo Maldonado MD
--- NOTE | 2024-07-02 17:57 | PTCARENOTE ---
Pt returned from dual chamber ICD placement. Right upper chest wall with pressure dressing in place. (R) arm immobilizer on. Pt unwilling to provide a number for pain scale; states pain is tolerable. Right groin cath site C/D/I.
[2024-07-02] MEDS: ANCEF 5 IV (19:40)
[2024-07-02 20:23] LABS: Amphetamines Negative (Negative); Barbiturates Negative (Negative); Benzodiazepines Negative (Negative); Buprenorphine Negative (Negative); Cocaine Negative (Negative); Marijuana Positive (Negative); Methadone Negative (Negative); Methamphetamines Positive (Negative); Opiates Negative (Negative); Phencyclidine Negative (Negative); Tricyclic Antidepressants Negative (Negative)
[2024-07-02 20:38] LABS: Fentanyl, Urine Positive (Negative)
[2024-07-02] MEDS: LIPITOR 10 MG PO (21:28)
[2024-07-02] MEDS: LAMICTAL 250 MG PO (21:28)
--- NOTE | 2024-07-02 22:19 | PTCARENOTE ---
Pt. received at change of shift. Pt. seen and assessed in room. at bedside. Pt. AOx3. Left chest wall covered with steri strips, aqua cell, pressure dressing and immobilizer. R femoral groin site c/d/i. Complaining of 8/10 pain and feeling
tired. Pt. also states 'as long as there are no more needles we'll be fine'. RN educated patient about AM labs, patient refusing at this time, will reassess in the AM. Pt. transported to [facility] via [facility] and returned to room without complications. Pt.
sitting up in chair at this time. VS WNL. Tele reading AV Paced. Call wade within reach. Continuing to monitor at this time.
[2024-07-03] MEDS: ROXICODONE 5 MG PO (01:15)
[2024-07-03] MEDS: TYLENOL 650 MG PO (01:16)
[2024-07-03 03:17] VITALS: BP 129/85
[2024-07-03] MEDS: ANCEF 5 IV (03:18)
[2024-07-03 03:40] VITALS: BP 129/85
[2024-07-03 03:54] LABS: Hematocrit 40.8 % (39.0-52.0); Hemoglobin 14.3 g/dL (13.0-18.0); Mean Corpuscular Hgb 32.5 pg (27.0-31.0); Mean Corpuscular Volume 92.7 fL (80.0-94.0); Mean Platelet Volume 10.3 fL (7.4-10.4); Platelet Count 218 10^3/uL (130-400); Red Cell Dist. Width 12.1 % (11.5-14.5); White Blood Cell Count 12.3 10^3/uL (4.8-10.8)
[2024-07-03 04:19] LABS: Blood Urea Nitrogen 17 mg/dl (9-20); Calcium 9.3 mg/dl (8.4-10.2); Carbon Dioxide 17 mmol/L (22-30); Chloride 108 mmol/L (98-107); Estimated Creatinine Clearance 88 ml/min; Glucose 94 mg/dl (70-99); Potassium 4.3 mmol/L (3.5-5.1); Sodium 141 mmol/L (135-145); eGFR > 60.00
[2024-07-03 04:57] VITALS: BMI 26.4
--- NOTE | 2024-07-03 07:50 | W.PN.CARDCBS ---
Addendum entered and electronically signed by Luis E Christy MD 07/03/24 12:47:
patient seen and examined
agree with YULIANA Erickson's notes and assessment
agree with YULIANA Erickson's plan
exam:
right sided site cdi
tele reviewed
cxr reviewed
aao x 3
Assessment:
Presentation with palpitations, lightheadedness
CP
SOB
Hematemesis
Sustained, spontaneously aborted VT by device interrogation 07/01/24
Negative trop x1
Congenital heart disease status post VSD repair at age 1 with PA banding
Complete heart block status post dual-chamber Medtronic pacemaker initially placed 2006
Nonischemic cardiomyopathy with EF 35-40% by echo in 2020
Paroxysmal atrial flutter status post ablation 07/2014
history of stroke
mood disorder
chronic back pain with prior back surgeries
ongoing tobacco use
daily marijuana use
Echocardiogram 12/10/2020: EF 35 to 40%, mild LVH, mildly enlarged RV mild MAC, moderate TR, RVSP 23 mmHg, intra-atrial septum distended and bowing, multiple LV regional wall motion abnormalities exist (LAD distribution, RCA distribution, entire
apex, basal and mid anterolateral wall, mid inferolateral segment are hypokinetic)
Pacemaker interrogation 11/22/2023 72.8% atrial pacing, 99.6% V pacing, no A-fib noted, no high V rate events noted, battery 10.5 years
ECHO 07/01/24: EF 45 to 50%, abnormal septal motion consistent with RV paced rhythm or pressure overload, global hypokinesis, mild TR, PAP 26 mmHg, enlarged RV size akinetic RV apex, trace AR. Of note patient was found to have bicuspid aortic valve
at time of [facility] in 2013
Plan:
-He presented with episode of VT ~26 minutes in duration, which spontaneously aborted with patient vomiting.
-Underwent cardiac catheterization with nonobstructive CAD 07/02. possible VT scar based from prior VSD repair.
-then status post upgrade to dual-chamber ICD 07/02/2024
-awaiting AM interrogation. AV paced rhythm on review of tele, no further VT
-if were to have recurrence of VT, would consider for AAD therapy
-Echocardiogram with improvement in EF at 45 to 50% compared to prior in 2020 as above
-no recurrence of hematemesis. GI provided patient with their information if needed
-continue coreg, losartan, spironolactone. could consider addition of SGLT2 inhibitor as OP
-smoking (tobacco and marijuana) cessation. UDS was positive for fentanyl, and oxy (both of which patient received here pre UDS). also + for methamphetamines which patient denies, unclear if cross reactivity from other medication
-with chronic neck and back pain. pain mgmt per primary service
-above d/w patient and significant other, January at bedside
-ok for DC to home today
-OP cardiac follow up and wound check appt arranged
-d/w nursing
Addendum entered and electronically signed by Deandra Erickson PA-C 07/03/24 11:39:
Initial trop negative, however then peaked at 0.036. nonischemic myocardial injury secondary to sustained VT episode.
Original Note:
Today's Communication / Plan
-
s/p upgrade to DC ICD
AV paced
continue coreg, losartan, spironolactone
OP follow up with [facility] for wound check then [facility]
ok for DC today
Impression / Plan
-
Primary Monkey Keeper: Dr. Maldonado of [facility]
Assessment:
Presentation with palpitations, lightheadedness
CP
SOB
Hematemesis
Sustained, spontaneously aborted VT by device interrogation 07/01/24
Negative trop x1
Congenital heart disease status post VSD repair at age 1 with PA banding
Complete heart block status post dual-chamber Medtronic pacemaker initially placed 2006
Nonischemic cardiomyopathy with EF 35-40% by echo in 2020
Paroxysmal atrial flutter status post ablation 07/2014
history of stroke
mood disorder
chronic back pain with prior back surgeries
ongoing tobacco use
daily marijuana use
Echocardiogram 12/10/2020: EF 35 to 40%, mild LVH, mildly enlarged RV mild MAC, moderate TR, RVSP 23 mmHg, intra-atrial septum distended and bowing, multiple LV regional wall motion abnormalities exist (LAD distribution, RCA distribution, entire
apex, basal and mid anterolateral wall, mid inferolateral segment are hypokinetic)
Pacemaker interrogation 11/22/2023 72.8% atrial pacing, 99.6% V pacing, no A-fib noted, no high V rate events noted, battery 10.5 years
ECHO 07/01/24: EF 45 to 50%, abnormal septal motion consistent with RV paced rhythm or pressure overload, global hypokinesis, mild TR, PAP 26 mmHg, enlarged RV size akinetic RV apex, trace AR. Of note patient was found to have bicuspid aortic valve
at time of [facility] in 2013
Plan:
-He presented with episode of VT ~26 minutes in duration, which spontaneously aborted with patient vomiting.
-Underwent cardiac catheterization with nonobstructive CAD 07/02. possible VT scar based from prior VSD repair.
-then status post upgrade to dual-chamber ICD 07/02/2024
-awaiting AM interrogation. AV paced rhythm on review of tele, no further VT
-if were to have recurrence of VT, would consider for AAD therapy
-Echocardiogram with improvement in EF at 45 to 50% compared to prior in 2020 as above
-no recurrence of hematemesis. GI provided patient with their information if needed
-continue coreg, losartan, spironolactone. could consider addition of SGLT2 inhibitor as OP
-smoking (tobacco and marijuana) cessation. UDS was positive for fentanyl, and oxy (both of which patient received here pre UDS). also + for methamphetamines which patient denies, unclear if cross reactivity from other medication
-with chronic neck and back pain. pain mgmt per primary service
-above d/w patient and significant other, January at bedside
-ok for DC to home today
-OP cardiac follow up and wound check appt arranged
-d/w nursing
PREADMIT DATA:
-Patient presents with episode of palpitation/lightheadedness with associated chest pain, shortness of breath this morning. By device interrogation completed in ER, rhythm was consistent with ~26 minutes of VT at time of this event (discussed with
EP and device wireless sales representative). Appears he broke with episode of vomiting, which patient and family report was bloody.
Progress Note - Monkey Keeper
Subjective
Date of Service: July 03, 2024
Reports some mild upper chest soreness. Eager for discharge
Objective
Labs:
07/03/24 03:24
07/03/24 03:24
Labs
Hgb 14.3 g/dL (13.0-18.0) 07/03/24 03:24
Hct 40.8 % (39.0-52.0) 07/03/24 03:24
Plt Count 218 10^3/uL (130-400) 07/03/24 03:24
Sodium 141 mmol/L (135-145) 07/03/24 03:24
Potassium 4.3 mmol/L (3.5-5.1) 07/03/24 03:24
BUN 17 mg/dl (9-20) 07/03/24 03:24
Creatinine 0.9 mg/dL (0.7-1.3) 07/03/24 03:24
Glucose 94 mg/dl (70-99) 07/03/24 03:24
Troponins
07/01/24 07/01/24 07/02/24
11:15 20:47 04:32
Troponin I < 0.012 0.036 H* 0.019 D
07/02/24
10:00
Troponin I Cancelled
Vital Signs and I&O:
Vital Signs
Temp Pulse Resp BP Pulse Ox
97.8 F 60 18 129/85 98
07/03/24 03:40 07/03/24 03:40 07/03/24 03:40 07/03/24 03:40 07/02/24 22:55
Vital Signs
Temp Pulse Resp BP Pulse Ox
97.8 F 60 18 129/85 98
07/03/24 03:40 07/03/24 03:40 07/03/24 03:40 07/03/24 03:40 07/02/24 22:55
Intake & Output
06/30/24 07/01/24 07/02/24 07/03/24
07:59 07:59 07:59 07:59
Output Total 250 / 250
Balance -250 / -250
Physical Exam
Physical Exam
GEN: No distress, awake, alert, oriented x3. Pressure dressing in place R chest
HEENT: supple, anicteric, mmm, EOMI
LUNGS: CTA bilaterally, no wheezes/rales
CV: Reg, S1/S2, no murmur
ABD: soft, BS+, NT/ND
EXT: No cyanosis, clubbing, edema
NEURO: Gross non-focal
SKIN: warm, pink, dry. No rash
[2024-07-03 08:17] VITALS: BP 129/77
[2024-07-03] MEDS: PROTONIX IV 40 MG IV (09:15)
[2024-07-03] MEDS: NSS (PRESERVATIVE FREE) 10 ML IV (09:16)
--- NOTE | 2024-07-03 09:17 | W.PN.UPDATE ---
Update Note
Progress Note Update
Went to see pt for consult this am. He and state consult may have been cancelled and he was feeling improved without further vomiting. I reviewed with Dr. Acosta and sent tiger text to Jaelyn Kelley. Dr. Acosta will further review with patient
and let GI team know if consulted needed. I left contact information on chart for patient if any recurrent issues after admission to follow up in GI office to discuss.
[2024-07-03] MEDS: COREG 6.25 MG PO (09:28)
[2024-07-03] MEDS: ALDACTONE 25 MG PO (09:29)
[2024-07-03] MEDS: COZAAR 25 MG PO (09:29)
[2024-07-03] MEDS: NICODERM TRANSDERMAL 14 MG TRANSDERM (09:29)
--- NOTE | 2024-07-03 10:02 | PN.CDI ---
CDI
- -
CDI:
Physician Documentation Request
Admit Date: 07/01/24 16:26
Dear Cardiology,
Please review the following and provide your response in the progress notes.
Clinical Indicators:
- Patient admit for sustained Vtach
- 07/02 Cardiology 'Negative trop x1...Initial Trop 0.036 and trending down'
- 07/02 [facility] [employer] [facility] 'Normal coronary arteries'
Laboratory Tests
07/01/24 07/01/24 07/02/24
11:15 20:47 04:32
Troponin I < 0.012 0.036 H* 0.019 D
Please clarify the following regarding the documented elevated troponin:
Non-ischemic myocardial injury
Clinically insignificant abnormal lab value
Other
Use of terms such as suspected, likely, concern for, or probable (associated with a specific diagnosis that is being evaluated, monitored, or treated as if it exists) are acceptable and can be coded in the inpatient setting, when documented at the
time of discharge.
Thank you,
Mercedes Yan RN
CDI Specialist
Please use your independent medical judgment in providing your response.
--- NOTE | 2024-07-03 11:23 | CM ---
CM following for DC planning needs.
Anticipate DC soon. There are no identified DC needs.
Plan is home, no needs.
[2024-07-03 11:50] VITALS: BP 129/76
--- NOTE | 2024-07-03 14:42 | W.PN.HOSP.TC ---
Today's Communication/Plan
-
d/c home
Assessment / Plan
Assessment / Plan
TTE 07/01
Normal left ventricular size. Mild concentric left ventricular hypertrophy. Mildly reduced left ventricular systolic function. Abnormal (paradoxical)
septal motion consistent with right ventricular paced rhythm or pressure overload. Global hypokinesis. LV ejection fraction is 45-50% by Williamson's
method of discs. Aortic valve opens normally. Calcified aortic valve. No aortic stenosis. Trace aortic regurgitation is seen. Tricuspid valve opens normally.
Mild tricuspid regurgitation. Estimated pulmonary artery pressure of 26 mmHg assuming a right atrial pressure of 3 mmHg.
Enlarged right ventricular size. Reduced right ventricular systolic function. Akinetic right ventricular apex. Pacer wire seen in right ventricle.
Aortic valve opens normally. Calcified aortic valve. No aortic stenosis. Trace aortic regurgitation is seen.
Since [facility] July 2014, there is no significant change. Of note patient was found to have a bicuspid aortic valve at the time of [facility] in 2013.

1. Chest pain
Episode of sustained VT
s/p ICD placement
-Exertional in nature while patient having intercourse
-Trop max of 0.036, has normalized now
-EKG not helpful as have AV paced rhythm
-Echocardiogram report as above with EF in mid range of 45 to 50%. Some abnormal paradoxical septal movement
-[facility] showed normal coronaries
-Patient location showed patient had a sustained VT episode lasting approximately 25 minutes plus
-patient underwent ICD placement yesterday. Post ICD care instruction provided to patient
2. Hematemesis
Nausea/vomiting - resolved
-Reported episode of hematemesis at home, suspecting Dayanara-Avila tear
-No reported alcohol use/peptic ulcer disease
-GI requested for patient to be followed up in outpatient in office
2. H/o of VSD repair
-Patient have some paradoxical septal motion as detailed above
-Increased risk of cardiac arrhythmia/ventricular tachycardia due to scar tissue
3. History of complete heart block
History of paroxysmal atrial flutter status post ablation in 2013
Status post dual-chamber pacemaker placement 2006
-Currently paced rhythm
-On Coreg with other cardiac problems, continue
4. Nonischemic cardiomyopathy
Heart failure with midrange EF
-Patient had history of heart failure with EF 35 to 40% now improved to 45-50%
5. Tobacco use
-nicotine patch and nicorette gum PRN for craving
-smoking cessation advised
6. Marijuana use
-Urine drug screen positive for marijuana and methamphetamine
-Patient emphatically denies using methamphetamine. Presuming false positive methaphatamine
History of CVA
Mood disorder
Full code
More than 30 minutes spent in discharge including
Final examination of the patient
Summarizing hospital stay
Instructions for continuing care to all relevant caregivers
Preparation of discharge records, prescriptions, and referral forms
Total time spent (in minutes): 39 mins
Anticipated Discharge: Today
Subjective/Interval History
-
Date of Service: July 03, 2024
Having some right upper chest discomfort
No cardiac complaints
Objective Data
-
Labs:
Laboratory Results
07/03/24
03:24
WBC 12.3 H
Hgb 14.3
Hct 40.8
Plt Count 218
Sodium 141
Potassium 4.3
Chloride 108 H
Carbon Dioxide 17 L
BUN 17
Creatinine 0.9
Glucose 94
Calcium 9.3
Vital Signs:
Vital Signs
Temp Pulse Resp BP Pulse Ox
98.0 F 62 16 129/76 98
07/03/24 11:50 07/03/24 12:00 07/03/24 11:50 07/03/24 11:50 07/03/24 11:50
I&O
07/02/24 07/03/24 07/04/24
06:59 06:59 06:59
Output Total 250 / 250
Balance -250 / -250
Review of Systems
-
Respiratory: Reports No Symptoms
Cardiac: Reports No Symptoms
Abdomen/GI: Reports No Symptoms
Physical Exam
-
General: No Apparent Distress and Comfortable
HEENT: Negative Oxygen
Respiratory: Clear to Auscultation and Other (Right upper chest dressing in place )
Cardiac: Regular Rhythm and S1/S2; Negative Murmur or Rub
GI: Soft, Nontender, Nondistended and Normal Bowel Sounds
Musculoskeletal: No Edema
Neuro: Awake, Alert, Oriented, No Motor Deficits and Nonfocal/Grossly Intact
Psych: Calm
--- NOTE | 2024-07-04 08:33 | W.DCSUMMARY ---
Discharge Summary
Discharge Data
Date of Admission: 07/01/24
Date of Discharge: 07/03/24
-
Pending Results: No
Hospital Course
Discharging Physician : Dr Kuldip Acosta
Disposition : Home
Primary care physician : Dr Roz Acosta
Principal Discharge diagnosis :
Chest pain
Episode of sustained monomorphic ventricular tachycardia
Hematemesis suspected Dayanara-Avila tear
Chronic Discharge diagnosis :
History of ventricular septal defect repair
History of complete heart block
History of paroxysmal atrial flutter status post ablation in 2013
History of dual-chamber pacemaker placement in 2006
Nonischemic cardiomyopathy
Heart failure with midrange ejection fraction
Ongoing tobacco use
Ongoing marijuana use
Hospital Course :
Patient is a 39-year-old male with no mentioned past medical history came to ER after having new onset of sternal chest pain and palpitation while having intercourse. Patient had episode of nausea and vomiting with reported bloody material in
vomitus. Patient paced rhythm and EKG not helpful with diagnosing ACS. Cardiology evaluated the patient and on pacemaker patient was noted to having 25 min of monomorphic Vtach. Patient had an echocardiogram showing global hypokinesis with
abnormal septal motion defect. Patient was taken to [facility] and was found to have normal coronary anatomy. EP cardiology was involved in care and patient underwent an ICD placement. Postprocedure course remained uncomplicated.
Patient also had episode of hematemesis which was likely felt to be Dayanara-Avila tear related. Patient did not report any significant alcohol use or peptic ulcer disease. GI recommended for patient to follow-up in office in outpatient basis.
Patient was discharged to home at this point with follow-up with cardiology in office.
Important imaging findings :
None
Procedure findings :
None
Discharge Plan
-
Patient Disposition: Home (Routine Discharge)
Discharge Diagnosis/Procedures: ventricular tachycardia, cardiac catheterization, ICD upgrade
Condition: Fair
Diet: Low Cholesterol and Low Sodium
Activity: Other activity
Additional Activity: see device sheet
Driving Restrictions: No driving for 1 week
Stand Alone Forms: DC Instructions- Cath/EP Lab, DC Inst - Implanted Device
Referrals:
[facility] [Provider Group] - 07/09/24 10:00 am (Post device incision check appointment)
Roz Acosta DO [Family Provider] -
Lety Cruz DO [Active] - (call GI office if any recurrent nausea, vomiting, vomiting blood or any other GI issues)
Giancarlo Maldonado MD [Active] - in three to four weeks
Prescriptions:
New
oxycodone 5 mg tablet
5 mg PO Q8H PRN (Reason: Mod sev pain) Qty: 14 0RF
Continued
carvedilol 6.25 MG tablet
6.25 mg PO BID
losartan 25 MG tablet
25 mg PO DAILY
spironolactone 25 MG tablet
25 mg PO DAILY
lamotrigine [Lamictal] 100 MG tablet
250 mg PO HS
atorvastatin [Lipitor] 10 mg Tablet
10 mg PO HS
Discharge Orders:
Discharge Patient (As Directed); Ordered 07/03/24
Ordered By: Kuldip Acosta
Care Plan Goals
Care Plan Goals:
Problem: Readiness for enhanced knowledge related to diagnosis and treatment plan
Goal: Understand your diagnosis and treatment plan needs, including medications if applicable.
Instructions: Know your diagnosis, underlying causes and treatment plan options, including medications if applicable. Consult with your health care team to learn about your diagnosis and treatment plan, including medications if applicable.
Discharge Date and Time
Discharge Date/Time: 07/03/24 12:47
Print Language: HEBREW
== END 2024-07-03 12:47 | disposition home or self-care (01) | DRG 275 ==
LOC: IVU 16:26
PROVIDERS: Internal Medicine Cardiovascular Disease; Internal Medicine Interventional Cardiology; Nurse Practitioner; Nurse Practitioner Family; Physician Assistant; ADMITTING PHYSICIAN Internal Medicine; ATTENDING PHYSICIAN Hospitalist; CONSULT PHYSICIAN Internal Medicine Cardiovascular Disease; EMERGENCY PHYSICIAN Emergency Medicine; FAMILY PHYSICIAN Family Medicine
PROC: B2151ZZ Fluoroscopy of Left Heart using Low Osmolar Contrast (ICD-10-PCS; 2024-07-02)
PROC: 0JPT0PZ Removal of Cardiac Rhythm Related Device from Trunk Subcutaneous Tissue and Fascia, Open Approach (ICD-10-PCS; 2024-07-02)
PROC: 02HK3KZ Insertion of Defibrillator Lead into Right Ventricle, Percutaneous Approach (ICD-10-PCS; 2024-07-02)
PROC: 0JH608Z Insertion of Defibrillator Generator into Chest Subcutaneous Tissue and Fascia, Open Approach (ICD-10-PCS; 2024-07-02)
PROC: 02PA3MZ Removal of Cardiac Lead from Heart, Percutaneous Approach (ICD-10-PCS; 2024-07-02)
PROC: B2111ZZ Fluoroscopy of Multiple Coronary Arteries using Low Osmolar Contrast (ICD-10-PCS; 2024-07-02)
DX: I47.29 Other ventricular tachycardia (principal); K22.6 Gastro-esophageal laceration-hemorrhage syndrome; I42.8 Other cardiomyopathies; K92.0 Hematemesis; I5A Non-ischemic myocardial injury (non-traumatic); I11.0 Hypertensive heart disease with heart failure; I50.9 Heart failure, unspecified; F39 Unspecified mood [affective] disorder; I44.2 Atrioventricular block, complete; I49.5 Sick sinus syndrome; F17.210 Nicotine dependence, cigarettes, uncomplicated; E78.5 Hyperlipidemia, unspecified; F12.90 Cannabis use, unspecified, uncomplicated; G89.29 Other chronic pain; M54.9 Dorsalgia, unspecified; Z79.82 Long term (current) use of aspirin; Z79.899 Other long term (current) drug therapy; Z86.79 Personal history of other diseases of the circulatory system; Z86.73 Personal history of transient ischemic attack (TIA), and cerebral infarction without residual deficits; Z95.0 Presence of cardiac pacemaker; Z87.74 Personal history of (corrected) congenital malformations of heart and circulatory system
CPT/HCPCS: 33233; 33249; 71045; 71046; 80048; 80053; 80306; 80307; 83735; 83880; 84484; 85014; 85018; 85025; 85027; 86850; 86900; 86901; 93005; 93306; 93458; 99285; C1721; C1777; C1892; C1894; Q9950; Q9967